=== PATIENT | female | born 1980 | race Caucasian/White ===

== ENCOUNTER 2016-08-26 12:28 | Emergency (ER) | payer OTHER ==
--- NOTE | 2016-08-26 12:43 | ED Physician Documentation ---
Lower Extremity Injury - HISTORIAN Historian: patient - HPI Chief Complaint: Lower Extremity Injury Onset: minutes (45) Where: home Severity: mild Context: twist Modifying Factors:: pain on movement - ROS CONST: no problems - PAST HX Past History: other (hypothyroidism) Allergies/Adverse Reactions: Allergies Allergy/AdvReac Type Severity Reaction Status Date / Time No Known Allergies Allergy Unverified 08/26/16 12:42 Home Medications: Ambulatory Orders Medication Instructions Recorded Amoxicillin [Trimox] 08/26/16 Escitalopram Oxalate [Lexapro] 10 mg PO QD 08/26/16 Levothyroxine Sodium [Synthroid] 150 mcg PO QDAY 08/26/16 - SOCIAL HX Smoking History: non-smoker Alcohol Use: occasionally Drug Use: none - FAMILY HX Family History: no significant history - VITAL SIGNS Vital Signs: Vital Signs Temp Pulse Resp BP Pulse Ox 97.9 F 99 H 16 100/66 98 08/26/16 12:33 08/26/16 13:52 08/26/16 13:52 08/26/16 13:52 08/26/16 12:33 - REVIEWED ASSESSMENTS Nursing Assessment Reviewed: Yes Vitals Reviewed: Yes ED Results Lab/Radiology - Radiology Radiology Impressions: x - Orders Orders: ED Orders Category Date Time Status Air Splint 1T Care 08/26/16 13:24 Active ANKLE 3 VIEWS OR MORE [RAD] Stat Exams 08/26/16 Ordered Lower Extremities Injury Phy - Physical Exam General Appearance: no acute distress Legs: bilateral: non-tender, normal inspection, normal range of motion, no evidence of injury Ankle: right: limited range of motion, pain, soft tissue tenderness, swelling, left: non-tender, normal inspection, normal range of motion, no evidence of injury, N/A: ecchymosis (none) Foot: bilateral foot: non-tender, normal inspection, normal range of motion, no evidence of injury Gait: limited by pain Neuro/Vascular/Tendon: no vascular compromise Resp/CVS: chest non-tender, breath sounds nml, heart sounds nml, no resp. distress, lungs clear, reg. rate & rhythm Discharge Clincal Impression: Right ankle strain Qualifiers: Encounter type: initial encounter Qualified Code(s): S96.911A - Strain of unspecified muscle and tendon at ankle and foot level, right foot, initial encounter Referrals: Valeria Grimaldo MD [Primary Care Provider] - 2 Days Additional Instructions: Cool compress ot the ankle for the next 24 hours. Keep elevated when possible. Take some Aleve or Ibuprofen as needed for pain. Wear ankle splin for the next several dasy until it feels stable again. Home Medications: Ambulatory Orders Amoxicillin [Trimox] 08/26/16 Escitalopram Oxalate [Lexapro] 10 mg PO QD 08/26/16 Levothyroxine Sodium [Synthroid] 150 mcg PO QDAY 08/26/16 Condition: Stable Disposition: 01 HOME, SELF-CARE Decision to Admit: NO Date of Decison to Admit: 08/26/16 Decision Time: 13:16
[2016-08-26 13:54] VITALS: BP 100/66
--- NOTE | 2016-08-26 15:16 | Diagnostic Imaging Report ---
REBEKAH PYLE [facility] [address] [facility].[address] [address] Report Submission Date: Aug 26, 2016 1:22:14 PM CDT Patient Study Name: ESTELLA BAIN Date: Aug 26, 2016 12:52:25 PM CDT Modality Type: CR Gender: F Description: LOWER EXTREMITY : 80 Institution: [facility] Physician: REBEKAH PYLE Examination: Plain film ankle History: Injury Findings: 3 views of the ankle demonstrates normal cortical margins. No fracture or dislocation. Talar dome is intact. No soft tissue swelling. No joint effusion. Impression: No acute osseous process. Electronically signed on Aug 26, 2016 1:22:14 PM CDT by: Jaswinder CLARK
== END 2016-08-26 13:30 | disposition home or self-care (01) ==
LOC: ED 12:28
DX: S96.911A Strain of unspecified muscle and tendon at ankle and foot level, right foot, initial encounter (principal); X58.XXXA Exposure to other specified factors, initial encounter; Y93.9 Activity, unspecified; Y99.9 Unspecified external cause status
CPT/HCPCS: 73610; L4350; 99283